=== PATIENT | male | born 1955 | race Caucasian/White ===

== ENCOUNTER 2021-02-10 08:12 | Emergency (ER) | payer MEDICARE ==
[~2021-02-10] VITALS: Ht 175.3 cm; Wt 72.7 kg
[2021-02-10 11:00] VITALS: BP 116/89
[2021-02-10] MEDS ORDERED: IBUPROFEN 400 MG TABLET PO ONE (11:30)
[2021-02-10] MEDS ORDERED: ACETAMINOPHEN 325 MG TABLET PO ONE (11:30)
== END 2021-02-10 11:57 | disposition home or self-care (01) ==
LOC: EMS 08:12
DX: G56.21 Lesion of ulnar nerve, right upper limb (principal); F12.90 Cannabis use, unspecified, uncomplicated; Z88.8 Allergy status to other drugs, medicaments and biological substances
CPT/HCPCS: 99283